=== PATIENT | female | born 1985 ===

== ENCOUNTER 2024-11-05 08:00 | Inpatient (IN) | payer OTHER ==
[~2024-11-05] VITALS: Ht 162.6 cm; Wt 72.1 kg
[2024-11-05 09:12] LABS: BASO % 0.4 % (0.1-1.2); EOS # 0.09 (0.04-0.54); EOS % 1.2 % (0.7-7.0); LYMPH # 2.65 (1.18-3.74); LYMPH % 36.3 % (19.3-53.1); MEAN PLATELET VOLUME 10.40 fl (9.4-12.4); MONO # 0.46 (0.24-0.82); MONO % 6.3 % (4.7-12.5); NEUT # 4.06 (1.56-6.13); NEUT % 55.7 % (34.0-71.1); RED CELL DISTRIBUTION WIDTH 17.2 % (11.6-14.4)
[2024-11-05 09:27] LABS: URINE APPEARANCE Clear; URINE BILIRRUBIN Negative (NEGATIVE); URINE BLOOD Large; URINE COLOR Dark Yellow; URINE GLUCOSE Negative (NEGATIVE); URINE KETONE Trace (NEGATIVE); URINE LEUKOCYTE Trace; URINE NITRATE Negative; URINE PROTEIN Trace (NEGATIVE); URINE UROBILINOGEN 0.2 E.U./dl
[2024-11-05] MEDS ORDERED: DILTIAZEM 24HR180 MG PO (09:27)
[2024-11-05 09:28] VITALS: BP 127/83
[2024-11-05] MEDS ORDERED: MICARDIS80 MG PO (09:28)
[2024-11-05 09:30] VITALS: BP 130/100
[2024-11-05 09:31] LABS: URINE BACTERIA 111.5 uL (0.0-1933); URINE EPITHELIAL CELLS 22.7 uL (0.0-38.8); URINE RBC 138.7 uL (0.0-20.8); URINE WBC 28.4 uL (0.0-23.2)
[2024-11-05 09:40] LABS: INR 1.05
[2024-11-05 10:09] LABS: ALT/SGPT 16 U/L (12-78); AST/SGOT 12 U/L (15-37); BILIRUBIN TOTAL 0.48 mg/dL (0.3-1.2); BUN CREA RATIO 15 (7.0-25.0); CREATININE SERUM 0.68 mg/dL (0.55-1.02); GFR 97.36; GLOBULINA 3.3 G/DL (2.4-3.5); GLUCOSE FASTING 80 mg/dL (65-100); OSMOLALITY SERUM 287 MOSM/KG (275-295)
[2024-11-05 10:11] LABS: URINE CAST 0.29 uL (0.0-1.40)
[2024-11-05 10:12] LABS: HCG QUANTITATIVE < 1 mUI/mL (1-3)
[2024-11-05 10:13] LABS: URINE MUCUS SCANT
[2024-11-05 14:10] LABS: RH POSITIVE
[2024-11-11] MEDS ORDERED: CEFAZOLIN SODIUM 1,000 MG VIAL ONE (09:50)
[2024-11-11] MEDS ORDERED: METRONIDAZOLE/SODIUM CHLORIDE 500 MG/100 ML PIGGYBACK IV ONE ×2 (09:51→13:45)
[2024-11-11] MEDS ORDERED: POVIDONE-IODINE 118 ML BOTT TOP ONE ×2 (11:26→13:45)
[2024-11-11] MEDS ORDERED: CEFAZOLIN SODIUM 1,000 MG VIAL IV ONE (13:45)
[2024-11-11] MEDS ORDERED: ACETAMINOPHEN 500 MG GEL..CAP PO SCH (15:37)
[2024-11-11] MEDS ORDERED: RINGERS SOLUTION,LACTATED 1,000 ML IV SCH (15:45)
[2024-11-11] MEDS ORDERED: ONDANSETRON HCL 2 MG/ML VIAL IV PRN (15:45)
[2024-11-11] MEDS ORDERED: GABAPENTIN 300 MG CAPSULE PO SCH (17:00)
[2024-11-11] MEDS ORDERED: ONDANSETRON HCL 2 MG/ML VIAL ONE (17:16)
[2024-11-11] MEDS ORDERED: KETOROLAC TROMETHAMINE 30 MG VIAL IV SCH (18:00)
[2024-11-11] MEDS ORDERED: KETOROLAC TROMETHAMINE 30 MG VIAL ONE (19:29)
[2024-11-11] MEDS ORDERED: FAMOTIDINE/PF 20 MG/2 ML VIAL ONE (19:29)
[2024-11-11 20:45] VITALS: BP 127/83
[2024-11-11] MEDS ORDERED: FAMOTIDINE/PF 20 MG in 0.9 % SODIUM CHLORIDE 8 ML IV PUSH SCH (21:00)
[2024-11-11 23:46] VITALS: BP 117/72
[2024-11-12 04:30] VITALS: BP 117/75
[2024-11-12 06:30] LABS: BASO % 0.2 % (0.1-1.2); EOS # 0.02 (0.04-0.54); EOS % 0.2 % (0.7-7.0); LYMPH # 1.92 (1.18-3.74); LYMPH % 17.2 % (19.3-53.1); MEAN PLATELET VOLUME 10.70 fl (9.4-12.4); MONO # 0.67 (0.24-0.82); MONO % 6.0 % (4.7-12.5); NEUT # 8.51 (1.56-6.13); NEUT % 76.1 % (34.0-71.1); RED CELL DISTRIBUTION WIDTH 16.9 % (11.6-14.4)
[2024-11-12 08:12] VITALS: BP 133/86
[2024-11-12] MEDS ORDERED: PATIENTS OWN MEDICATION (MEDICAMENTO EN PISO) PO SCH (09:00)
[2024-11-12] MEDS ORDERED: DILTIAZEM HCL 180 MG CAP.SR.24H PO SCH (09:00)
== END 2024-11-12 09:32 | disposition home or self-care (01) | DRG 743 ==
LOC: OB/GYN 11-11 07:00 → O/R 11-11 14:00 → OB/GYN 11-11 17:53
PROVIDERS: ADMIT Student in an Organized Health Care Education/Training Program; ATTEND Student in an Organized Health Care Education/Training Program
PROC: 0UT74ZZ Resection of Bilateral Fallopian Tubes, Percutaneous Endoscopic Approach (ICD-10-PCS; 2024-11-11)
PROC: 0TJB8ZZ Inspection of Bladder, Via Natural or Artificial Opening Endoscopic (ICD-10-PCS; 2024-11-11)
PROC: 0UT94ZZ Resection of Uterus, Percutaneous Endoscopic Approach (ICD-10-PCS; principal; 2024-11-11 07:00)
DX: D25.1 Intramural leiomyoma of uterus (principal)